=== PATIENT | male | born 1980 | race Caucasian/White ===

== ENCOUNTER 2019-09-30 02:51 | Inpatient (IN) | payer MEDICARE ==
[2019-09-30 03:50] LABS: #Eosinphils 0.2 thou/uL (0.0-0.7); #Lymphocytes 1.4 thou/uL (1.20-3.40); #Monocytes 1.1 thou/uL (0.11-0.59); #Neutrophils 12.8 thou/uL (1.40-6.50); %Basophils 0.3 % (0.0-1.0); %Eosinophils 1.1 % (0.0-10.0); %Lymphocytes 9.1 % (21.0-51.0); %Monocytes 7.3 % (0.0-10.0); %Neutrophils 82.2 % (42.0-75.0); Hemoglobin 10.7 g/dL (14.0-18.0); Mean Corpuscular HGB CONC 32.3 g/dL (32.0-36.0); Mean Corpuscular Hemoglobin 29.8 pg (27.0-31.0); Mean Corpuscular Volume 92.2 fL (78.0-98.0); Mean Platelet Volume 7.2 fL (7.4-10.4); Platelet Count 298 thou/uL (130-400); RBC Distribution Width 13.9 % (11.5-14.5); Red Blood Cell (RBC) Count 3.61 mill/uL (4.70-6.10); White Blood Cell (WBC) Count 15.6 thou/uL (4.8-10.8)
[2019-09-30 03:53] LABS: Bilirubin Negative (Negative); Blood, Urine Trace (Negative); Clarity Turbid (Clear); Glucose, Urine (Dipstick) 200 mg/dL (Negative); Leukocyte 500 Leu/uL (Negative); Nitrite Negative (Negative); Protein, Urine (Dipstick) 300 mg/dL (Neg-Trace); Squamous Epithelial 0-3 HPF (0-3); Urobilinogen Normal mg/dL (Less than 2); WBC/HPF Greater than 50 HPF (0-3); Yeast-Budding 2+ HPF (None Seen)
[2019-09-30 03:56] LABS: Bacteria/HPF 1+ HPF (None Seen)
[2019-09-30] MEDS ORDERED: Dextrose 50% Abboject 50 ML SYRINGE ONE (04:02)
[2019-09-30 04:05] LABS: ALT (SGPT) 22 U/L (8-55); AST (SGOT) 15 U/L (5-34); Albumin 3.2 g/dL (3.5-5.0); Alkaline Phosphatase 96 U/L (40-110); Anion Gap 13 mmol/L (10-20); BUN (Urea Nitrogen) 18 mg/dL (8.9-20.6); Bilirubin, Total 0.2 mg/dL (0.2-1.2); Calc. Creatinine Clearance 0 mL/min (70-130); Calcium 8.2 mg/dL (7.8-10.44); Carbon Dioxide 26 mmol/L (22-29); Chloride 103 mmol/L (98-107); Estimated GFR-MDRD 29; Globulin 3.5 g/dL (2.4-3.5); Glucose 121 mg/dL (70-105); Potassium 3.9 mmol/L (3.5-5.1); Protein, Total 6.7 g/dL (6.0-8.3); Sodium 138 mmol/L (136-145)
[2019-09-30] MEDS ORDERED: cefTRIAXone\\ROCEPHIN 2 GM VIAL ONE (04:21)
[2019-09-30] MEDS ORDERED: Lorazepam 2 MG/ML VIAL SLOW IVP PRN (04:50)
[2019-09-30] MEDS ORDERED: Dextrose 5% in Water 1,000 ML IV PRN ×2 (04:52→11:13)
[2019-09-30] MEDS ORDERED: Dextrose 50% Abboject 50 ML SYRINGE SLOW IVP PRN (04:52)
[2019-09-30 04:53] LABS: Actual Bicarbonate (HCO3a) 27.3 mEq/L (22-28); Analyzer IN Cardio ER; Base Excess (BEa) 2.5 mEq/L (-2.0 to +3.0); CO2 Tension 43.2 mmHg (35.0-45.0); Calcium, Ionized 1.11 mmol/L (1.12-1.30); Carboxyhemoglobin (COHb) 1.4 gm% (0.0-3.0); Hemoglobin (Hb) 10.5 g/dL (14.0-18.0); O2 Tension (PaO2) 67.5 mmHg (80.0-100.0); Potassium - ABG Lab 4.04 mmol/L (3.70-5.30); pH, Arterial 7.42 (7.35-7.45)
[2019-09-30 04:57] LABS: Puncture Site RRA
[2019-09-30] MEDS ORDERED: Dextrose 5% in Water 1,000 ML IV SCH (05:45)
--- NOTE | 2019-09-30 05:50 | PDOC.EVN ---
Event Note - Event Note Event Note: [id number] HP
[2019-09-30] MEDS ORDERED: Cefepime 1 GM VIAL ONE (08:58)
[2019-09-30] MEDS: Cefepime 1 GM in Sodium Chloride 0.9% 100 ML IVPB SCH (09:05)
--- NOTE | 2019-09-30 09:17 | CT ---
PRELIMINARY REPORT/[facility]/AFTER HOURS PROCEDURE CT Head Without Intravenous Contrast CLINICAL HISTORY: ER5; NO PREVIOUS ON PACS; M41, Patient presents after hypoglycemia followed by seizure and with hypot hermia. BG 132 by family this evening. Pt then became unresponsive. TECHNIQUE: Axial computed tomography images of the head/brain without intravenous contrast. COMPARISON: None provided. FINDINGS: BRAIN: No acute intraparenchymal hemorrhage. No mass lesion. No CT evidence for acute territorial inf arct. No midline shift or extra-axial collection. VENTRICLES: No hydrocephalus. ORBITS: The orbits are unremarkable. SINUSES AND MASTOIDS: The paranasal sinuses and mastoid air cells are clear. SOFT TISSUES: No significant facial or scalp soft tissue swelling evident. No radiopaque foreign body is seen. BONES: No acute skull fracture. IMPRESSION: No acute intracranial abnormality. ELECTRONICALLY SIGNED BY: Delmar Young M.D. Sep 30, 2019 4:20:38 AM SUPPORT SERVICES TECH This report is intended for review by the ordering physician only, in accordance of law. If you recei ve this report in error, please call [facility] at [phone]. FINAL REPORT CT BRAIN WITHOUT CONTRAST: HISTORY: Hypoglycemia. Hypothermia. Seizure. FINDINGS: No parenchymal hemorrhage. No extraaxial hematoma. No midline shift. The basilar cisterns are patent. Brain volume is less than expected for the patient's age. White matter hypodensities due to chronic small vessel ischemic change. Linear hyperdensity along the left external capsule may represent areas of calcification due to remote insult. sinuses and mastoid air cells. IMPRESSION: This report is in agreement with the preliminary report by [facility]. No acute intracranial pr ocess. Linear hyperdensity along the left external capsule likely representing sequela of remote insu lt. CODE QA POS: OFF
--- NOTE | 2019-09-30 09:45 | PRG ---
DATE OF SERVICE: 09/30/2019 SERVICE: Nephrology. SUBJECTIVE: A 39-year-old male with multiple comorbidities including diabetes, hemorrhagic CVA with right-sided hemiparesis, acute on chronic renal failure on hemodialysis, who was just discharged from the hospital following treatment for acute diastolic heart failure and fluid overload associated with respiratory failure. The patient was brought to the hospital due to hypoglycemia, mental status change, and seizure. He states somnolent this morning. He was also found to have hypothermia, was started on rewarming. He was unable to provide any significant history this morning. OBJECTIVE: VITAL SIGNS: Blood pressure 129/77. GENERAL: Chronically ill-looking male, in no obvious distress. Afebrile, anicteric, acyanotic. HEENT: Normocephalic and atraumatic. NECK: No JVD appreciated. Right-sided tunneled noted. CARDIOVASCULAR: Regular rhythm and rate with normal heart sounds one and two. Soft systolic murmur noted. RESPIRATORY: Fair air entry bilaterally with coarse transmitted breath sounds bilaterally. No wheezing or use of accessory muscles appreciated. GI: Full, soft, nontender, nondistended with normal bowel sounds. EXTREMITIES: Trace to mild edema of lower extremities, especially on the right side noted. 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 Tries to wake up with stimulation. DIAGNOSTIC DATA: CBC showed WBC count of 15.6, hemoglobin of 10.7, MCV of 92.2, and platelet of 298. Arterial blood gas showed pH of 7.4, pCO2 of 43.2, PO2 of 67.7. CMP showed sodium 139, potassium 3.9, chloride 109, CO2 of 26, BUN 18, creatinine 2.47, glucose 121, calcium 8.2, total bilirubin 0.2, AST 15, ALT 12, alkaline phosphatase 96, total protein 6.7, albumin 3.2, globulin 3.5. Lactic acid was 1.4. Initial troponin was less than 0.01. ASSESSMENT: 1. Acute metabolic encephalopathy due to seizure and hypoglycemia. 2. Possible postictal state. 3. Hemorrhagic stroke with residual right-sided hemiparesis. 4. Seizure disorder due to hemorrhagic stroke on Keppra. 5. Acute on chronic renal failure on regular hemodialysis. There has been no renal recovery as yet. Doubt if the patient will have any significant renal recovery to get out of hemodialysis. The patient has baseline diabetic nephropathy. 6. Prmmgtdb-jn-ddjnal protein-calorie malnutrition. 7. Diabetes mellitus on insulin therapy. 8. Anasarca: Markedly improved with hemodialysis with UF. PLAN: Treatment of seizure and hypoglycemia as per primary attending. Their electrolytes, acid-base balance, and volume status are acceptable. There is no need for hemodialysis today. We will plan on arranging regular hemodialysis Saturday, , and Saturday in line with the patient's outpatient schedule. We will follow along with you. Many thanks for involving us in the care of this patient. Job ID: [id number]
[2019-09-30] MEDS ORDERED: Dextrose 50 % In Water 50 ML SYRINGE IV PRN (11:13)
[2019-09-30] MEDS ORDERED: Dextrose 10% in Water 1,000 ML IV SCH (11:15)
--- NOTE | 2019-09-30 11:19 | HP ---
CHIEF COMPLAINT: Unresponsiveness. HISTORY OF PRESENT ILLNESS: Mr. Carter is a 39-year-old male with past medical history of end-stage renal disease, on hemodialysis, diabetes mellitus, was brought to the emergency room after the patient was found to be unresponsive. As per EMS, the patient was hypoglycemic followed by his seizure. Blood glucose this evening was 132, and the patient was given 20 units of glargine by family. The patient then became unresponsive with blood glucose read as low, given glucagon, D10, then patient had a seizure and was given 2 mg of Ativan. Blood glucose went up to 152. Then, the patient was hypothermic with a temperature of 93.2. The patient remains to be in a postictal state, unresponsive. Currently warming is being done in the emergency room at this point. On lab work, the patient was found to have urinary tract infection. The patient is protecting his airway. The ABG showed a pH of 7.42, pCO2 of 43, and PO2 of 67. Electrolytes, creatinine is 2.47, potassium is 3.9, glucose 122. Urinalysis positive for infection. WBC count elevated at 15.6, hemoglobin 10.7, platelets 298. The patient is going to be admitted to the hospital for further management. PAST MEDICAL HISTORY: 1. End-stage renal disease, on hemodialysis. 2. Diabetes mellitus, type 1. PAST SURGICAL HISTORY: Bilateral feet surgery. SOCIAL HISTORY: No history of alcohol abuse or drug abuse or smoking. FAMILY HISTORY: Unknown at this point, the patient is not responding. HOME MEDICATIONS: Please see home medication reconciliation form for updated medications. ALLERGIES: ALLERGIC TO ACETAMINOPHEN, DILAUDID, EGG, HYDROCODONE, HYDROMORPHONE, VICODIN. REVIEW OF SYSTEMS: Unable to obtain due to patient's underlying medical condition. PHYSICAL EXAMINATION: GENERAL: The patient is unresponsive, but able to protect his airway. NECK: Supple. CHEST: Fair bilateral air entry. HEART: S1, S2. Regular. ABDOMEN: Soft. Bowel sounds present. NEUROLOGIC: The patient does not respond to verbal commands. PSYCHIATRIC: Unable to assess. EXTREMITIES: No clubbing or cyanosis. VITAL SIGNS: Blood pressure 128/88, pulse is 81, respiratory rate is 21, oxygen saturation is 94% on 2 L/minute nasal cannula. Current temperature is 95 rectal. LABORATORY DATA: As mentioned above in history of present illness. ASSESSMENT: 1. Acute metabolic encephalopathy. 2. Hypoglycemia in a diabetic patient. 3. Urinary tract infection. 4. Hypothermia. 5. End-stage renal disease, on hemodialysis. 6. Diabetes mellitus type 1 with hypoglycemia. PLAN: 1. Admit to IMCU. 2. Continue with rewarming. 3. Frequent glucose checks. 4. Continue with IV D5. 5. Septic workup including blood cultures, urine cultures. 6. IV antibiotics. 7. To consult Nephrology in a.m. for evaluation and further recommendations, patient is on hemodialysis. 8. Reconcile home medications. 9. DVT prophylaxis as appropriate. 10. Expected length of stay 2 midnights or more. Job ID: [id number]
[2019-09-30 11:41] VITALS: BMI 17.3
[2019-09-30] MEDS ORDERED: Vancomycin HCl 500 MG in Sodium Chloride 0.9% 100 ML IVPB SCH (11:45)
[2019-09-30] MEDS ORDERED: Vancomycin HCl 250 MG in Sodium Chloride 0.9% 100 ML IVPB SCH (11:45)
[2019-09-30] MEDS ORDERED: Vancomycin HCl 750 MG in Sodium Chloride 0.9% 250 ML 250 ML IVPB SCH (11:45)
[2019-09-30] MEDS ORDERED: HOLD VANCOMYCIN FOR LEVEL >20 FS SCH (11:45)
[2019-09-30] MEDS ORDERED: Vancomycin HCl 1 GM in Premix Bag 1 BAG IVPB SCH ×2 (11:45→12:00)
[2019-09-30] MEDS ORDERED: Insulin Glargine 10 UNITS in Pre-Filled Syringe 1 EACH SC SCH (19:00)
[2019-09-30] MEDS ORDERED: Insulin Regular 300 UNITS/3 ML VIAL SC PRN (20:11)
[2019-09-30] MEDS ORDERED: Insulin Glargine 8 UNITS in Pre-Filled Syringe 1 EACH SC SCH (20:15)
[2019-09-30] MEDS: hydrALAZINE 25 MG TAB PO SCH (20:26)
[2019-09-30] MEDS: levETIRAcetam 500 MG TAB PO SCH (20:26)
[2019-09-30] MEDS: Carvedilol 25 MG TAB PO SCH (20:26)
[2019-09-30] MEDS ORDERED: Insulin Regular 300 UNITS/3 ML VIAL SC SCH (21:45)
[2019-10-01 00:24] LABS: Lactic Acid 3.6 mmol/L (0.5-2.2)
[2019-10-01 00:32] LABS: Anion Gap 17 mmol/L (10-20); BUN (Urea Nitrogen) 31 mg/dL (8.9-20.6); Calc. Creatinine Clearance 21 mL/min (70-130); Calcium 7.8 mg/dL (7.8-10.44); Carbon Dioxide 21 mmol/L (22-29); Chloride 94 mmol/L (98-107); Estimated GFR-MDRD 20; Sodium 127 mmol/L (136-145)
[2019-10-01 00:39] LABS: Glucose 690 mg/dL (70-105)
[2019-10-01] MEDS ORDERED: Insulin Regular 300 UNITS/3 ML VIAL SC SCH (01:45)
[2019-10-01] MEDS ORDERED: Sodium Chloride 0.9% 250 ML IV SCH (02:00)
--- NOTE | 2019-10-01 07:22 | PDOC.EVN ---
Event Note - Event Note Event Note: pt seen an examined. No complains. will continue his oral keppra. will start him on d10 for low blood sugar and check blood sugars q2h.
[2019-10-01 08:21] LABS: #Basophils 0.1 thou/uL (0.0-0.2); #Eosinphils 0.2 thou/uL (0.0-0.7); #Lymphocytes 1.7 thou/uL (1.20-3.40); #Monocytes 0.8 thou/uL (0.11-0.59); #Neutrophils 5.4 thou/uL (1.40-6.50); %Basophils 0.7 % (0.0-1.0); %Eosinophils 2.6 % (0.0-10.0); %Monocytes 9.3 % (0.0-10.0); %Neutrophils 66.5 % (42.0-75.0); Hemoglobin 9.4 g/dL (14.0-18.0); Mean Corpuscular HGB CONC 33.4 g/dL (32.0-36.0); Mean Corpuscular Hemoglobin 30.6 pg (27.0-31.0); Mean Corpuscular Volume 91.6 fL (78.0-98.0); Mean Platelet Volume 7.1 fL (7.4-10.4); Platelet Count 338 thou/uL (130-400); RBC Distribution Width 13.6 % (11.5-14.5); Red Blood Cell (RBC) Count 3.08 mill/uL (4.70-6.10); White Blood Cell (WBC) Count 8.1 thou/uL (4.8-10.8)
[2019-10-01 08:32] LABS: Vancomycin, Random 22.2 ug/mL (See Comment)
[2019-10-01 08:34] LABS: Anion Gap 13 mmol/L (10-20); BUN (Urea Nitrogen) 32 mg/dL (8.9-20.6); Calc. Creatinine Clearance 23 mL/min (70-130); Calcium 8.2 mg/dL (7.8-10.44); Carbon Dioxide 24 mmol/L (22-29); Chloride 99 mmol/L (98-107); Estimated GFR-MDRD 23; Glucose 99 mg/dL (70-105); Potassium 4.6 mmol/L (3.5-5.1); Sodium 131 mmol/L (136-145)
[2019-10-01] MEDS ORDERED: Lidocaine 5% Patch TD SCH (09:00)
[2019-10-01] MEDS: Cefepime 1 GM in Sodium Chloride 0.9% 100 ML IVPB SCH (09:46)
[2019-10-01] MEDS: levETIRAcetam 500 MG TAB PO SCH ×2 (09:48→21:07)
[2019-10-01] MEDS: hydrALAZINE 25 MG TAB PO SCH ×3 (09:48→21:07)
[2019-10-01] MEDS: Carvedilol 25 MG TAB PO SCH ×2 (09:48→21:07)
[2019-10-01] MEDS: Insulin Glargine 6 UNITS in Pre-Filled Syringe 1 EACH SC SCH (09:48)
[2019-10-01] MEDS: Fluconazole 100 MG TAB PO SCH (09:48)
[2019-10-01] MEDS: HYDROcodone/Acetaminophen 7.5/325 mg Tablet PO PRN (09:48)
[2019-10-01] MEDS: DULoxetine 60 MG CAP PO SCH (09:48)
[2019-10-01] MEDS: Lidocaine Patch Removal 1 EACH TOP SCH (11:47)
[2019-10-01] MEDS: Insulin Regular 300 UNITS/3 ML VIAL SC PRN (12:16)
[2019-10-01] MEDS ORDERED: Vancomycin HCl 1 GM in Premix Bag 1 BAG IVPB SCH (12:45)
[2019-10-01] MEDS ORDERED: Vancomycin HCl 250 MG in Sodium Chloride 0.9% 100 ML IVPB SCH (12:45)
[2019-10-01] MEDS ORDERED: Vancomycin HCl 500 MG in Sodium Chloride 0.9% 100 ML IVPB SCH (12:45)
[2019-10-01] MEDS ORDERED: HOLD VANCOMYCIN FOR LEVEL >20 FS SCH (12:45)
[2019-10-01] MEDS ORDERED: Vancomycin HCl 750 MG in Sodium Chloride 0.9% 250 ML 250 ML IVPB SCH (12:45)
--- NOTE | 2019-10-01 12:49 | PRG ---
DATE OF SERVICE: 10/01/2019 SERVICE: Nephrology. SUBJECTIVE: A 39-year-old male with acute on chronic renal failure, requiring regular hemodialysis, who was just discharged from the hospital, now readmitted with acute mental status change and hypoglycemia. The patient also reportedly had seizure. He is awake and conversational. Denied shortness of breath, nausea, or vomiting. The patient dialyzes Saturday, , and Saturday. OBJECTIVE: VITAL SIGNS: Temperature 97.6, pulse 91, respiratory rate 16, SpO2 of 93% on room air, and blood pressure is 150/91. GENERAL: Chronically ill-looking cachectic young male, in no obvious distress. Afebrile. Anicteric. Acyanotic. HEENT: Normocephalic, atraumatic. NECK: Supple. No JVD appreciated. CARDIOVASCULAR: Regular rhythm and rate with normal heart sounds 1 and 2. RESPIRATORY: Fair air entry bilaterally with coarse transmitted breath sounds. Work of breathing is not increased. GI: Soft, nontender, nondistended with normal bowel sounds. EXTREMITIES: Diffuse muscular atrophy with trace to mild edema especially on the right side. 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 Right hemiparesis is noted. DIAGNOSTIC DATA: CBC showed WBC count of 8.1, hemoglobin of 9.4, and platelets of 338. BMP showed sodium 131, potassium 4.6, chloride 99, CO2 of 24, BUN 32, creatinine 3.02, glucose 99, and calcium 8.2. ASSESSMENT: 1. Acute on chronic kidney disease, requiring regular hemodialysis. There has been no renal recovery as yet. The patient seems to now be in end-stage renal disease. 2. Complicated diabetes with diabetic nephropathy. 3. Hemorrhagic stroke with right-sided hemiparesis. 4. Severe protein-calorie malnutrition. 5. Hypertension: Mostly mediated by volume excess. 6. Volume overload: Markedly improved with dialysis with UF. 7. Marked cachexia. 8. Anemia and chronic kidney disease. 9. Hypoglycemia, resolved. 10. Seizure disorder: Related to recent hemorrhagic stroke. The patient is on Keppra. PLAN: 1. We will dialyze the patient today in line with the outpatient dialysis schedule. Given significant weight loss, we will dialyze the patient for 3 hours with UF as tolerated. 2. We will restart antihypertensives, Coreg and hydralazine. 3. Doubt if this patient has any infectious etiology. Recommend discontinuation of antibiotics since he was just discharged from the hospital and there has been no fever. 4. Recommend holding of long-acting insulin due to worsening renal function. 5. Further treatment to follow depending on hospital course. 6. We will also start the patient on Nepro t.i.d. Dietary consult is also recommended. Job ID: [id number]
--- NOTE | 2019-10-01 13:14 | PDOC.HOSPP ---
- Subjective Encounter Date: 10/01/19 Encounter Time: 10:30 Subjective: pt up in bed complains of pain to his lower back - Objective Vital Signs & Weight: Vital Signs (12 hours) Temp Pulse Ox 10/01/19 07:50 99 10/01/19 06:59 97.6 F 10/01/19 03:14 98.0 F Weight Weight 113 lb 12.136 oz Most Recent Monitor Data Heart Rate from ECG 86 NIBP 150/91 NIBP BP-Mean 110 Respiration from ECG 21 SpO2 93 Result Diagrams: 10/01/19 07:50 10/01/19 07:50 Additional Labs: Accuchecks 10/01/19 10/01/19 10/01/19 12:12 09:49 06:29 POC Glucose 243 H 276 H 97 10/01/19 10/01/19 10/01/19 05:12 04:21 02:40 POC Glucose 106 181 H 430 H 09/30/19 09/30/19 09/30/19 22:59 22:36 21:39 POC Glucose Greater than 550 H* Greater than 550 H* Greater than 550 H* 09/30/19 09/30/19 09/30/19 20:06 20:05 18:35 POC Glucose Greater than 550 H* Greater than 550 H* 490 H Hospitalist ROS - Review of Systems Respiratory: denies: cough, dry, shortness of breath, hemoptysis, SOB with excertion, pleuritic pain, sputum, wheezing, other Cardiovascular: denies: chest pain, palpitations, orthopnea, paroxysmal noc. dyspnea, edema, light headedness, other Musculoskeletal: reports: back pain - Medication Medications: Active Medications Generic Name Dose Route Start Last Admin Trade Name Freq PRN Reason Stop Dose Admin Hydrocodone Bitart/Acetaminophen 1 tab 10/01/19 08:53 10/01/19 09:48 [place] 7.5/325 PO 1 tab Q4H PRN Administration Mild Pain (1-3) Carvedilol 25 mg 09/30/19 21:00 10/01/19 09:48 Coreg PO 25 mg BID JOSEF Administration Duloxetine HCl 60 mg 10/01/19 09:00 10/01/19 09:48 Cymbalta PO 60 mg DAILY JOSEF Administration Fluconazole 100 mg 10/01/19 09:00 10/01/19 09:48 Diflucan PO 100 mg DAILY JOSEF Administration Hydralazine HCl 25 mg 09/30/19 21:00 10/01/19 09:48 Apresoline PO 25 mg TID JOSEF Administration Cefepime HCl 1 gm/ Sodium 100 mls @ 200 mls/hr 09/30/19 08:00 10/01/19 09:46 Chloride IVPB 100 mls 0800 JOSEF Administration Insulin Glargine 6 units/ 0.06 mls @ 0 mls/hr 10/01/19 09:00 10/01/19 09:48 Miscellaneous Medication SC 0.06 mls QAM JOSEF Administration Insulin Human Regular 0 units 09/30/19 20:11 10/01/19 12:16 Humulin R SC 3 unit .MILD SLIDING SCALE PRN Administration Mild Correctional Scale Insulin Human Regular 0 units 09/30/19 20:11 09/30/19 20:25 Humulin R SC 5 unit .BEDTIME SLIDING SC PRN Administration Bedtime Correctional Scale Levetiracetam 500 mg 09/30/19 21:00 10/01/19 09:48 Keppra PO 500 mg BID JOSEF Administration Lidocaine 1 patch 09/30/19 23:59 10/01/19 00:00 Lidoderm 5% Patch TD 1 patch 6545 JOSEF Administration Miscellaneous Medication 1 each 10/01/19 12:00 10/01/19 11:47 Lidocaine Patch Removal TOP Not Given 1200 JOSEF Pantoprazole Sodium 40 mg 10/01/19 09:00 10/01/19 09:48 Protonix PO 40 mg DAILY JOSEF Administration - Exam Neck: negative: supple, symmetric, no JVD, no thyromegaly, no lymphadenopathy, no carotid bruit, JVD Heart: negative: RRR, no murmur, no gallops, no rubs, normal peripheral pulses, irregular, diminshed peripheral pulses, murmur present, II/IV, III/IV Respiratory: negative: CTAB, no wheezes, no rales, no ronchi, normal chest expansion, no tachypnea, normal percussion, rales, rhonchi, tachypneic, wheezes Hosp A/P (1) Seizure Code(s): R56.9 - UNSPECIFIED CONVULSIONS Status: Acute (2) Acute metabolic encephalopathy Code(s): G93.41 - METABOLIC ENCEPHALOPATHY Status: Acute (3) Hypoglycemia Code(s): E16.2 - HYPOGLYCEMIA, UNSPECIFIED Status: Acute (4) DM type 1 (diabetes mellitus, type 1) Status: Chronic (5) ESRD on dialysis Code(s): N18.6 - END STAGE RENAL DISEASE; Z99.2 - DEPENDENCE ON RENAL DIALYSIS Status: Chronic - Plan will start his inulin but will lower his doses. His ckd is stable. pt on his antiseizure meds. neurology consult pending.
[2019-10-01] MEDS ORDERED: Heparin 10,000 UNITS/ 10 ML VIAL ONE (15:12)
[2019-10-01 17:20] LABS: Vancomycin, Random 18.6 ug/mL (See Comment)
--- NOTE | 2019-10-01 18:03 | CON ---
DATE OF CONSULTATION: 10/01/2019 CONSULTING PHYSICIAN: Hospitalist Service. IMPRESSION: 1. First seizure provoked by hypoglycemia. 2. End-stage renal disease, on hemodialysis. 3. Diabetes. 4. Right hemiparesis from prior small-vessel stroke. PLAN: No anticonvulsants are indicated at this point in time. HISTORY OF PRESENT ILLNESS: Mr. Carter is a 39-year-old man with multiple medical problems. He apparently had a hypoglycemic event, which was followed by what appeared to be a seizure. He came into the emergency room. He had a CT scan of the brain done, which did not reveal any acute changes. He has not had any further seizures. He denies a history of seizures. He reports being hemiparetic on the right for the last several months. He gets around with assistance. He does not really recall anything that took place. He complains that his memory is quite scrambled since the event. PAST MEDICAL HISTORY: As listed above. ALLERGIES: NUMEROUS PAIN MEDICATIONS AND EGGS. SOCIAL HISTORY: No illicit drug use. FAMILY HISTORY: Noncontributory. MEDICATIONS: List was reviewed. REVIEW OF SYSTEMS: Ten-system review of systems is otherwise unremarkable. PHYSICAL EXAMINATION: GENERAL: He is a cachectic-appearing middle-aged man, lying in bed, in no acute distress. VITAL SIGNS: Stable. He is afebrile. HEENT: Pupils equal. Conjunctivae clear. Oropharynx clear. NECK: Supple. EXTREMITIES: He has amputations of his toes. He is quite thin, but there is no cyanosis or edema. NEUROLOGIC: He was awake and cooperative. His speech was fluent with only a minimally dysarthric quality. There was a slight right facial droop present. There was dense right upper extremity paresis. He has some distal movement of the right leg. Sensations intact to touch. No abnormal movements were seen. Gait is not testable at this time. LABORATORY DATA: Laboratory studies were reviewed. SUMMARY: This is a middle-aged man, who had a seizure in the midst of hypoglycemia. I do not see any need for anticonvulsants at this point. Job ID: [id number]
[2019-10-01] MEDS ORDERED: Insulin Glargine 6 UNITS in Pre-Filled Syringe 1 EACH SC SCH (21:00)
[2019-10-01] MEDS ORDERED: Lidocaine Patch Removal 1 EACH TOP SCH (21:00)
[2019-10-01] MEDS ORDERED: FLU VACC QS2019-20(6MOS UP)/PF 60 MCG/0.5 ML SYRINGE IM ONE (21:00)
[2019-10-01] MEDS: Lidocaine 5% Patch TD SCH ×2 (23:13)
[2019-10-02] MEDS: Cefepime 1 GM in Sodium Chloride 0.9% 100 ML IVPB SCH (08:29)
[2019-10-02] MEDS: Fluconazole 100 MG TAB PO SCH (08:30)
[2019-10-02] MEDS: Insulin Glargine 6 UNITS in Pre-Filled Syringe 1 EACH SC SCH (08:30)
[2019-10-02] MEDS: hydrALAZINE 25 MG TAB PO SCH ×2 (08:30→14:57)
[2019-10-02] MEDS: DULoxetine 60 MG CAP PO SCH (08:30)
[2019-10-02] MEDS: Carvedilol 25 MG TAB PO SCH (08:30)
[2019-10-02] MEDS: levETIRAcetam 500 MG TAB PO SCH (08:30)
[2019-10-02 08:36] LABS: Anion Gap 10 mmol/L (10-20); BUN (Urea Nitrogen) 16 mg/dL (8.9-20.6); Calc. Creatinine Clearance 30 mL/min (70-130); Calcium 8.7 mg/dL (7.8-10.44); Carbon Dioxide 31 mmol/L (22-29); Chloride 101 mmol/L (98-107); Estimated GFR-MDRD 31; Glucose 85 mg/dL (70-105); Potassium 4.4 mmol/L (3.5-5.1); Sodium 138 mmol/L (136-145)
[2019-10-02] MEDS: Lidocaine Patch Removal 1 EACH TOP SCH (12:20)
[2019-10-02] MEDS: Insulin Regular 300 UNITS/3 ML VIAL SC PRN (12:20)
[2019-10-02 14:58] VITALS: BP 148/98
[2019-10-02] MEDS: HYDROcodone/Acetaminophen 7.5/325 mg Tablet PO PRN (14:58)
[2019-10-02 15:22] VITALS: TEMP 98.1
--- NOTE | 2019-10-02 20:00 | PRG ---
DATE OF SERVICE: 10/02/2019 SERVICE: Nephrology. SUBJECTIVE: A 39-year-old male with known history of diabetes, requiring insulin, acute on chronic renal failure, requiring regular hemodialysis, admitted due to acute mental status change of lethargy and hypoglycemia. The patient also had an episode of seizure. He was treated with dextrose infusion with improvement in hypoglycemia. Clinically improved. The patient is conversational. There have been no further seizures since admission. OBJECTIVE: VITAL SIGNS: Temperature 98.1, pulse 98, respiratory rate 17, SpO2 100 on room air, blood pressure is 149/102. GENERAL: Chronically ill-looking male, in no obvious distress. Afebrile. Anicteric. Acyanotic. HEENT: Normocephalic, atraumatic. Oral mucosa is moist. CARDIOVASCULAR: Regular rhythm and rate with normal heart sounds, one and two. RESPIRATORY: Fair air entry bilateral with few transmitted breath sounds. No crackle or rhonchi are appreciated. GI: Full, soft, nontender, nondistended with normal bowel sounds. EXTREMITIES: Marked muscle wasting noted. No erythema is appreciated. No obvious edema noted. 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 Cranial nerves 2 through 12 are grossly intact. Right-sided hemiparesis noted. DIAGNOSTIC DATA: BMP showed sodium 138, potassium 4.4, chloride 101, CO2 of 31, BUN , creatinine 2.32, calcium 8.7. ASSESSMENT: 1. Acute on chronic renal failure: Now, seems more like end-stage renal disease. The patient is getting hemodialysis, Saturday, , and Saturday. Next dialysis is scheduled for tomorrow. 2. Hypertension: Improved. We will monitor blood pressure closely and increase antihypertensives as needed. 3. Hypoglycemia: Resolved. Most likely related to worsening renal failure with prolonged action of endogenous and exogenous insulin. 4. Fluid overload: Markedly improved with hemodialysis. 5. Anemia in chronic kidney disease. RECOMMENDATION: 1. The patient can be discharged from nephrology point of view. The patient is advised to report to usual dialysis unit for dialysis session as scheduled on Saturday, , and Saturday. 2. Deescalation of insulin therapy recommended given worsened renal function to avoid recurrence of hypoglycemia. Job ID: [id number]
--- NOTE | 2019-10-02 20:15 | DIS ---
DATE OF ADMISSION: 09/30/2019 DATE OF DISCHARGE: 10/02/2019 DISCHARGE DIAGNOSES: 1. Hypoglycemia. 2. Acute metabolic encephalopathy. 3. Seizure, acute on chronic. 4. Diabetes type 1. HOSPITAL COURSE: The patient is a 39-year-old male who was just recently discharged from the hospital, who presented to the hospital on 09/30, after being found unresponsive and was having a seizure. He was noted to have a very low blood sugar. At this time, he was brought into the hospital for further evaluation. The patient does have a history of end-stage renal disease and he is on hemodialysis. The patient was initially admitted into the [facility]. He regained consciousness. He was seen by Neurology, who had nothing additional to put, just mentioned most likely the seizure was secondary to the hypoglycemia. I did call the patient's father and consultation of the patient's dishtank operator, we decided to put the patient only on sliding scale given his very brittle diabetes. I recommended followup with his repossessor as an outpatient. Also, the patient has been educated about this. I recommended checking blood sugars 3-4 times a day. He did have a CT brain, which did not show any acute abnormalities. HOME MEDICATIONS: Will be: 1. NovoLog sliding scale. 2. Keppra 500 mg q.24. 3. Protonix 40 mg daily. 4. Hydralazine 25 t.i.d. 5. Duloxetine 60 mg daily. 6. Coreg 25 b.i.d. 7. Vitamin D2 of 50,000 units every 7 days. 8. Torsemide 20 mg b.i.d., which was okayed by dishtank operator to take since he is still making urine. 9. Diflucan 100 mg daily. 10. Calcium acetate one p.o. t.i.d. PHYSICAL EXAMINATION: VITAL SIGNS: Temperature 98.4, heart rate 95, respirations 17, 96% on room air, blood pressure of 125/87. GENERAL: He is awake, alert, and oriented x3. Does not appear in any distress. CV: S1 and S2 present. No murmurs, rubs, or gallops. ABDOMEN: Soft and nontender. Bowel sounds are present x2. DISCHARGE INSTRUCTIONS: He will be discharged back home and he will follow up with his primary, Endocrinology, and Nephrology. Job ID: [id number]
--- NOTE | 2019-10-06 12:20 | PQF ---
CLINICAL DOCUMENTATION IMPROVEMENT CLARIFICATION FORM: ICD-10 Updated PLEASE DO AN ADDENDUM TO THE PROGRESS NOTE WITH ANY DOCUMENTATION UPDATES OR ADDITIONS AND CARRY THROUGH TO DC SUMMARY. THANK YOU. DATE: 10/06/19 ATTN: DR. HICKS Please exercise your independent, professional judgment in responding to the clarification form. Clinical indicators are provided on the bottom of this form for your review Please check appropriate box(s) to clarify if the following diagnosis has been ruled in or ruled out: "SEPSIS" [ ] Ruled in diagnosis [ ] Continue to treat [ ] Resolved [ ] Ruled out diagnosis [ ] Cannot rule out diagnosis [ ] Other diagnosis [ ] Unable to determine In addition, please specify: Present on Admission (POA): [ ] Yes [ ] No [ ] Unable to determine For continuity of documentation, please document condition throughout progress notes and discharge summary. Thank You. 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 All Rights Reserved [email or web address] Office: [phone] [facility]
[2019-10-07] MEDS ORDERED: Ergocalciferol 1.25 MG(50,000 UNITS) CAP PO SCH (09:00)
== END 2019-10-02 16:48 | disposition home or self-care (01) | DRG 100 ==
LOC: ERS 02:51 → ERHOLD 04:44 → 2SE 17:42 → IMCU/EMU 22:48
PROVIDERS: ADMIT Internal Medicine; ATTEND Internal Medicine
PROC: 5A1D70Z Performance of Urinary Filtration, Intermittent, Less than 6 Hours Per Day (ICD-10-PCS; principal; 2019-10-01)
DX: R56.9 Unspecified convulsions (principal); G93.41 Metabolic encephalopathy; E43 Unspecified severe protein-calorie malnutrition; N18.6 End stage renal disease; N39.0 Urinary tract infection, site not specified; I69.351 Hemiplegia and hemiparesis following cerebral infarction affecting right dominant side; Z68.1 Body mass index [BMI] 19.9 or less, adult; I12.0 Hypertensive chronic kidney disease with stage 5 chronic kidney disease or end stage renal disease; N17.9 Acute kidney failure, unspecified; E10.649 Type 1 diabetes mellitus with hypoglycemia without coma; E10.22 Type 1 diabetes mellitus with diabetic chronic kidney disease; E87.70 Fluid overload, unspecified; D63.1 Anemia in chronic kidney disease; Z99.2 Dependence on renal dialysis; Z88.8 Allergy status to other drugs, medicaments and biological substances; Z91.012 Allergy to eggs
CPT/HCPCS: 36415; 36416; 70450; 80048; 80053; 80202; 81003; 81015; 82010; 82805; 83605; 84484; 85025; 87040; 87086; 90935; 93005; G0257; J0692; J0696; J1644; J1815; J3370; J3490